=== PATIENT | female | born 1980 | race African-American/Black ===

== ENCOUNTER 2025-03-23 12:19 | Outpatient (CLI) | payer OTHER, SELFPAY ==
--- NOTE | ~2025-03-23 | MMUS_ITS ---
EXAMINATION: MM diagnostic tarik BI w staci, US breast BI complete HISTORY: Abnormal mammogram. TECHNIQUE: Additional 3-D tomosynthesis images of the breasts were performed and synthetic 2-D images were generated. CAD analysis was submitted and interpreted. High resolution bilateral complete breas t ultrasound was performed. COMPARISON: Comparison to multiple prior studies sequentially, with oldest reviewed study dated 03/27. BREAST PARENCHYMAL COMPOSITION: Dense: The breasts are heterogeneously dense, which may obscure small masses FINDINGS: MAMMOGRAPHIC FINDINGS: There are no suspicious masses, calcifications or architectural distortion in either breast to sugges t malignancy. ULTRASOUND: Complete US of all 4 quadrants of the breast/s and retroareolar region was reviewed. There are multip le bilateral cysts in both breasts. No suspicious masses are identified in either breast to suggest m alignancy. IMPRESSION: 1. No evidence for malignancy in either breast. 2. Routine yearly screening mammogram and regular clinical breast examination are recommended. BI-RADS Category 2: Benign finding(s). Reviewed, dictated and finalized at location A. IMPRESSION: 1. No evidence for malignancy in either breast. 2. Routine yearly screening mammogram and regular clinical breast examination a re recommended. BI-RADS Category 2: Benign finding(s).
--- OUTSIDE RECORDS SUMMARY | 2025-03-23 14:00 | XMS_ITS | Data Portability ---
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 N Hospitalizations N Hyperparathyroidism N Migraines N Artificial Joints N Brain Tumors N NSAID Use N Acne N Eating Disorder N Encephalitis N PTSD N Meningitis N Constipation N Ulcers N Prostate Hypertrophy N Bleeding Disorder N Tuberculosis N Cerebral Palsy N AIDS/HIV N Myocardial Infarction N Urinary Tract Infection N Back Problems N Atrial Flutter N Substance Abuse N Peripheral Vascular Disease N Vertigo N Sleep Disorder N GERD/Reflux N Cirrhosis N Pulmonary Embolism N Chicken Pox N Autism Spectrum Disorder (ASD) N Hematologic Disease N Flomax Use Past or Present N Anxiety/Depression N Thyroid Disease N Colon Cancer N Breast Cancer N Hernia N Glaucoma N Lung Disease N Hypothyroidism N Developmental or Behavioral Disorders N Bipolar N Breast Problem N Pacemaker N Diverticulitis/Diverticulosis N Anesthesia Complications N Orthopedic Problems N Genitourinary Disease N Deep Vein Thrombosis N Varicose Veins N Cystic Fibrosis N Orthotics N Hearing Loss N Head Injury/Concussion N Developmental Problems N Congenital Anomalies N Wheeler Bite N Carotid Disease N Chronic Kidney Disease N Vitamin D Deficiency N ADHD N Endometriosis N Bladder or Kidney Problems N Meniers N Valvular Abnormalities N Psychiatric/Mental Health Condition N Organ Transplant N Dialysis N Schizophrenia N Foot Deformity N Speech Delay N Allergies/Hayfever N Dyslipidemia N Hyponatremia N Chronic Obstructive Pulmonary Disease N Parkinson's Disease N Developmental Delay N Diabetic Eye Disease N Osteoporosis/Osteopenia N Immune System Disorder N Multiple Sclerosis N Back Pain N Proteinuria N Colon Polyps N Mental Illness N Neurological Problems N Ovarian Cancer N Cardiomyopathy N Bedwetting N Blood Transfusions N Heart Problems/Murmur N Eye Trauma N Congestive Heart Failure (CHF) N Hyperlipidemia N Valvular Heart Disease N Kidney Failure N Double Vision N Ocular trauma N Abuse/Domestic Violence N Diverticulitis N Dementia N Hepatitis B N Lupus N Epilepsy/Seizures N Reflux/GERD N Sleep Apnea N Mental Problems N Warfarin Management N Aneurysm N Bronchitis N Heart Disease N Pre-Eclampsia N Hypertension N Gynecological History Statement/Question Response Abnormal Pap N Date of Last Mammogram 03/05/2021 Flow Heavy Date of LMP 02/18/2025 STIs/STDs N HPV Vaccine N Duration of Flow (days) 12 Age at Menarche 7 Current Control Method Tubal Ligat ion Age at First Child 16 Frequency of Cycle (Q days) 14 Sexually Active? N Menses Monthly N Date of Last Pap Smear 02/11/2022 Sexual Problems? N LMP Definite Desired Control Method None Obstetrics History GPAL:G 4 P 3 0 1 3 Type Value Multiple Births 0 Full Term 3 Induced 1 Spontaneous 0 Premature 0 Living 3 Ectopics 0 Total 4 Immunizations Vaccine Type Date Status Note Provider Nam e and Address Organization Details Recorded Time Hep A, adult 10/04/2020 completed Aissatou Scott MA [place], [place] - [facility] 10/04/2020 14:52:55 Past Encounters Encounter ID Performer Location Encounter Start Date Encounter Closed Date Diagnosis/Indication Diagnosis SNOMED-CT Code Diagnosis ICD10 Code Diagnosis Note [id number] MD Ann Pruitt (Adult Med) [address] [place] [address] 42528-139 0 01/03/2015 10:39:13 01/03/2015 18:16:25 [id number] Deepthi Juarez (Adult Med) [address] [place] [address] 15208-699 0 01/25/2015 14:04:01/26/2015 10:40:27 Adult health examination [id number] Body mass index 30+ - obesity 650135654 [id number] Deepthi Diaz Ann (Adult Med) [address] [place] [address] 79746-956 0 03/22/2015 10:17:32 03/23/2015 13:28:39 Body mass index 30+ - obesity 297771750 Adult [facility] th examination [id number] Janet Tello Ann (BACKSHOE PERSON) [address] [place] [address] 79048-930 0 03/29/2015 13:48:20 03/29/2015 16:45:38 Gynecologic examination 08166821 [id number] Ann (Adult Med) [address] [place] [address] 92386-469 0 05/23/2015 16:19:45 05/23/2015 17:02:55 Ulnar neuritis [id number] Merari Claudine Juarez (Adult Med) [address] [place] [address] 88621-477 0 12/08/2015 10:05:49 12/08/2015 17:18:14 Tuberculosis screening 383123720 Z11.1 [id number] NEAL Roblero (Adult Med) [address] [place] [address] 66024-863 0 12/19/2015 10:34:52 12/20/2015 15:58:58 Tuberculosis screening 938607897 Z11.1 [id number] MD Ann Priutt (Adult Med) [address] [place] [address] 38023-354 0 12/27/2015 12:10:47 12/29/2015 09:33:56 Constipation 95336153 K59.00 Increase fluid intake Tuberculos is screening 232474547 Z11.1 [id number] Greg Juarez (Adult Med) [address] [place] [address] 35011-788 0 02/14/2016 14:40:37 02/14/2016 15:50:42 Edema of lower extremity 818091260 R60.0 Backache 128501405 M54.9 Numbness of face 5830898 09 R20.0 On right [id number] MD Ann Pruitt (Adult Med) [address] [place] [address] 52159-787 0 05/27/2017 16:49:32 05/27/2017 17:31:06 Abnormal sensation 599386026 R20.9 Right leg. observe for change Edema of l ower extremity 247701020 R60.0 [id number] MD Ann Pruitt (Adult Med) [address] [place] [address] 52815-594 0 09/09/2017 10:37:16 09/09/2017 13:19:38 History and physical examination, pre-employment 278241743 Z02.1 Pain in right foot 55312 57243 53660 M79.671 discussed use of otc nsaid prn and /or menthol topical rub Tuberculos is screening 598821075 Z11.1 [id number] MD Ann Pruitt (Adult Med) [address] [place] [address] 75110-084 0 05/27/2018 12:45:53 05/28/2018 10:09:05 Body mass index 30+ - obesity 724907647 Z68.39 Encouraged Diet and activity [id number] MD Ann Horne (Adult Med) [address] [place] [address] 30469-643 0 03/19/2019 15:20:57 03/22/2019 10:30:28 Respiratory tract infection 326196349 J98.8 [id number] MD Ann Pruitt (Adult Med) [address] [place] [address] 01616-979 0 04/01/2019 12:39:34 04/02/2019 11:44:38 Unilateral leg edema 219153330 R60.0 Tenderness in limb 11972 1000 M79.197 [id number] Jose Juarez (BACKSHOE PERSON) [address] [place] [address] 49259-064 0 07/19/2019 11:01:55 07/20/2019 12:48:39 Gynecologic examination 16701771 Z01.419 Z11.51 Exposure t o sexually transmissible disorder 825992613 Z20.2 declined HIV Screening mammography 24 894095 Z12.31 Vulvitis 85614635 N76.2 iatrogenic - caused by excessive soaping- instructed on use of conditione r instead of soap in the pubic and axillary hair [id number] MD Ann Pruitt (Adult Med) [address] [place] [address] 24677-259 0 09/28/2019 09:50:04 09/29/2019 10:02:08 Pain in both feet 9151547850 7861051 M79.671 M79.672 Suggested daily aspirin use with meal due to associated knee pain and effusion Effusion o f joint of left knee 3985345796 26857 M25.462 Osteoarthr itis of knee 734629635 M17.9 [id number] MD Ann Pruitt (Adult Med) [address] [place] [address] 57809-697 0 12/06/2019 11:49:03 12/06/2019 13:12:34 Abnormal sensation 639824573 R20.9 Discussed addition of gabapentin [id number] MD Ann Pruitt (Adult Med) [address] [place] [address] 33524-734 0 06/05/2020 09:04:29 06/06/2020 08:55:35 Pain in elbow 54250723 M25.769 [id number] NEAL Cisneros (Adult Med) [address] [place] [address] 70344-765 0 09/28/2020 10:11:06 09/28/2020 10:55:38 [id number] NEAL Cisneros (Adult Med) [address] [place] [address] 92496-747 0 10/04/2020 14:22:20 10/05/2020 10:26:04 Requires a hepatitis A vaccination 726595485 Z28.3 [id number] Jose Juarez (BACKSHOE PERSON) [address] [place] [address] 87500-489 0 11/09/2020 12:02:30 11/15/2020 08:39:00 Family planning surveillance 887613405 Z30.09 Female sterilization 608 05742 Z30.2 Abnormal u terine bleeding 5047797331 9100 N93.9 Dysmenorrhea 685642004 N 94.6 [id number] Jose Juarez (BACKSHOE PERSON) [address] [place] [address] 08270-360 0 01/31/2021 08:18:04 01/31/2021 17:35:03 Screening for malignant neoplasm of breast 541866402 Z12.39 [facility] nning surveillance 127877511 Z30.09 [id number] Jose Lindsey Juarez (BACKSHOE PERSON) [address] [place] [address] 32328-918 0 01/31/2021 17:38:09 02/21/2021 09:59:03 Atrophic vaginitis 18565103 N95.2 Perimenopa usal disorder 437674999 N95.9 Screening for malignant neoplasm of breast 727331840 Z12.39 Hyperhidrosis 583261929 R61 [facility] nning surveillance 458939402 Z30.09 [id number] Jose Lindsey Juarez (BACKSHOE PERSON) [address] [place] [address] 75671-872 0 02/20/2021 15:54:21 02/21/2021 08:45:20 Family planning surveillance 554147888 Z30.09 Atrophic vaginitis 49884 000 N95.2 Perimenopa usal disorder 187124805 N95.9 Hyperhidrosis 272047874 R61 -d/c drysol [id number] MD Ann Pruitt (Adult Med) [address] [place] [address] 44604-356 0 01/17/2022 09:54:21 01/18/2022 09:13:32 Cough 69169234 R05.9 Eruption 562619355 R21 [id number] AMBER WARREN (Adult Med) [address] [place] [address] 97574-326 0 02/11/2022 08:26:05 02/12/2022 08:58:32 Urinary incontinence 739128516 R32 Pt admits to episodes of incontinen ce mostly with coughing and sneezing. She has an increased urgency to go to the bathroom and will dribble even after recently urinating. Between the bleeding and incontinen ce she goes through 3-4 depends a day.- provided informatio n about kegel exercises to help strengthen the pelvic muscles- sent depends to pharmacy to help pt save money Gynecologi c examination 76752828 Z01.419 Here today for WWEHx of tubal ligationLa st pap 2019, normal- pap performed today- UA to r/o infection which was normal Venereal d isease screening 647790034 Z11.3 Pt having vaginal pruritis and increased urgency to urinate.No t currently sexually active- nuswab to r/o infection Perimenopausal state 063 7416328 16316 Z78.0 She also admits to frequent night sweats, intermitte nt vaginal pruritis, and stress incontinen ce mostly with coughing and sneezing. She has increased urge to urinate but denies dysuria, increased frequency, or hematuria. Currently using premarin cream but was complainin g of it falling out - recommende d using before bed to prevent it from falling out- recommende d using it up to 3x/week (currently using it once weekly) Screening mammography 24 129904 Z12.31 Last mammogram 2020- new mammogram referral placed Abnormal u terine bleeding 6810996702 9100 N93.9 Pt states she was diagnosed with perimenopa usal state in Oct 2020 after having an episode of severe pelvic cramping and heavy bleeding with blood clots. She was started on Slynd at that time which has somewhat helped with her periods, but they are still very irregular. She states she did not have a pelvic US or any further workup at that time. Pt states she ran out of Slynd at the end of Jan and has been feeling more fatigued since then.PE: abd distended and suprapubic tenderness - refilled Slynd for now- pelvic US to r/o structural causes of pelvic cramping and irregular bleeding Morbid obesity 171821338 E66.01 BMI 38.7- Advised decreased portion sizes, good food choices, limited eating out or fast food and eliminate soda and juice from diet. Advised physical activity daily and offered encouragem ent to continue with positive changes made so far. Constipation 43049172 K5 9.00 Pt admits to chronic constipati on- increased fiber and fluid intake- start fiber supplement to regulate bowel movements- can take OTC miralax if no BMs for 4-5 days [id number] Zac Barriga MD [facility] (Adult Med) [address] [place] [address] 90036-802 0 02/20/2022 09:51:43 02/21/2022 11:11:25 Gastroenteritis 90465005 K52.9 Observe for recurrence associated with fe supplement Tuberculos is screening 147182666 Z11.1 [id number] AMBER WARREN [facility] (Adult Med) [address] [place] [address] 02/06/2023 08:57:41 02/11/2023 16:53:25 Obesity 053342255 E66.9 BMI: 38.7Advise d decreased portion sizes, good food choices, limited eating out or fast food and eliminate soda and juice from diet. Advised physical activity daily and offered encouragem ent to continue with positive changes made so far. Constipation 42674798 K5 9.00 Pt admits to chronic constipati onWorse with iron tablets due to SHAYE- increased fiber and fluid intake- start fiber supplement to regulate bowel movements- pt takes Equate to control constipati on- consider changing BC to control bleeding better which would fix SHAYE and then could stop iron Pruritus of vagina 43535 003 L29.3 Vaginal pruritus for the past 5 years, denies discharge, abd. pain, flank pain. Patient has history of vaginal itching- nuswab vg pos for gerard glabrata and trich. took medication as prescribed but did not help.-chec k swab again today to see if CG is still present, has resistant to diflucan- asked if she wanted ISH for trich but patient decliend today Screening mammography 24 654021 Z12.31 Last mammogram 2020- new mammogram referral placed Urinary incontinence 165 346949 R32 Pt admits to episodes of incontinen ce mostly with coughing and sneezing. She has an increased urgency to go to the bathroom and will dribble even after recently urinating. Between the bleeding and incontinen ce she goes through 3-4 depends a day.- provided informatio n about kegel exercises to help strengthen the pelvic muscles- sent depends to pharmacy to help pt save money-pelv ic floor therapy referral Atrophic vaginitis 97874 000 N95.2 Use of topical cream does help the pruritis temporaril y, using it 3x/week as directed-a pply Premarin 0.625 mg/gram vaginal gream Abnormal u terine bleeding 3612394489 9100 N93.9 Pt states she was diagnosed with perimenopa usal state in Oct 2020 after having an episode of severe pelvic cramping and heavy bleeding with blood clots. She was started on Slynd at that time which has somewhat helped with her periods, but they are still very irregular. She states she did not have a pelvic US or any further workup at that time. Pt states she ran out of Slynd at the end of Jan and has been feeling more fatigued since then.PE: abd distended and suprapubic tenderness - refilled Slynd for now- pelvic US to r/o structural causes of pelvic cramping and irregular bleeding Depression screening 171 818919 Z13.31 PHQ 01/09 was negative in office today (0 out of 27) [id number] AMBRE WARREN (Adult Med) [facility] [place] [address] 03/11/2023 14:58:20 03/12/2023 09:14:43 Pruritus of vagina 68539189 L29.3 Vaginal pruritus for the past 5 years, denies discharge, abd. pain, flank pain. Patient has history of vaginal itching- nuswab vg pos for gerard glabrata and trich. took medication as prescribed but did not help.- 02/11/22 nuswab vg pos for gerard glabrata and trich- 02/06/22 nuswab vg pos for gerard glabrata Patient started using the Boric acid as of 02/06/23. Using daily. Notes some improvemen t of the pruritus. Patient on her menstrual cycle today and declined swab today. Will come back to the office next week to repeat.- ordered repeat nuswab bv and gerard Urinary incontinence 165 881686 R32 Pt admits to episodes of incontinen ce mostly with coughing and sneezing. She has an increased urgency to go to the bathroom and will dribble even after recently urinating. Between the bleeding and incontinen ce she goes through 3-4 depends a day. Since last visit, patient is working with therapist for pelvic floor exercises and doing bladder training. Improvemen t of symptoms. Now she is using 0-2 Depends per day vs 3-4 at the last visit.- Continue pelvic floor exercises and bladder training Constipation 52125133 K5 9.00 Pt admits to chronic constipati onWorse with iron tablets due to SHAYE- increased fiber and fluid intake- start fiber supplement to regulate bowel movements- pt takes Equate to control constipati on- consider changing BC to control bleeding better which would fix SHAYE and then could stop iron Screening mammography 24 223374 Z12.31 Last mammogram 2020- Mammogram scheduled for next week Atrophic vaginitis 38594 000 N95.2 Use of topical cream does help the pruritis temporaril y, using it 3x/week as directed- c/w Premarin 0.625 mg/gram vaginal gram Obesity 513771145 E66.9 BMI: 38.7Advise d decreased portion sizes, good food choices, limited eating out or fast food and eliminate soda and juice from diet. Advised physical activity daily and offered encouragem ent to continue with positive changes made so far. Menorrhagia 799793094 N9 2.0 Pt states she was diagnosed with perimenopa usal state in Oct 2020 after having an episode of severe pelvic cramping and heavy bleeding with blood clots. At today visit, patient notes starting her menstrual cycle yesterday and notes heavy flow. Today she's changed Depends x3 times. Since starting perimenopa use, her menstrual cycles have been irregular. However, she's had a menstrual cycle every month this year for 5-7 days. Continues on norethindr one. She is having improved energy levels and would like to remain on the norethindr one instead of going back on the Slynd.- pelvic US to r/o structural causes of pelvic cramping and irregular bleeding- Start Ibuprofen 800 mg TID for 5 days Increased blood pressure 89635574 R03.0 Slightly elevated in the office today, was normal at her last visit with me.Follows with PCP regularlyK eep eye on blood pressure and f/u with PCP regarding elevated blood pressure [id number] MD Ann Pruitt (Adult Med) [address] [place] [address] 85353-574 0 10/04/2024 17:14:00 10/05/2024 16:03:12 Elevated blood-pressure reading without diagnosis of hypertension 286662097 R03.0 Reevaluate at next OV. Watch Na intake Allergic rhinitis 408536 04 J30.9 Cough 68991655 R05.9 [id number] MD Ann Pruitt (Adult Med) [address] [place] [address] 80322-775 0 01/05/2025 16:35:23 01/11/2025 16:10:34 Morbid obesity 230393573 E66.01 Allergic rhinitis 959481 04 J30.9 Restart cetirizine Essential hypertension 77163076 I10 Start antihypert ensive Microcytic hypochromic anemia 02285531 D50.9 Screening for malignant neoplasm of colon 389176651 Z12.11 [id number] MD Ann Dang (Adult Med) [address] [place] [address] 15263-048 0 03/01/2025 14:58:04 03/03/2025 14:04:26 Gynecologic examination 65904423 Z01.419 Normal PAP, Negative HPV 02/11/2022N uswab ordered [facility] screening 486598997 Z13.39 GAD7- {{Negative * Positive Mild Mode rate Sever e}} (0 out of 21) Depression screening 171 561943 Z13.31 PHQ9- {{Negative Positive Mild* Mode rate Sever e}} (9 out of 27) Morbid obesity 919865983 E66.01 BMI 40.3 Pain of left breast 1010 867041 N64.4 Mammogram and U/S orderedtwo small masses about 1cm each at lower inner quadrant [id number] NEAL Will (Adult Med) [address] [place] [address] 09149-477 0 01/31/2025 11:19:12 02/03/2025 12:52:06 Blood pressure taking 58162823 Z01.30 [id number] MD Ann Pruitt (Adult Med) [address] [place] [address] 35090-784 0 02/08/2025 11:55:13 02/09/2025 11:29:50 Type 2 diabetes mellitus 01003982 E11.9 Cough 72677526 R05.9 Essential hypertension 34516949 I10 Cont antihypert ensive Microcytic hypochromic anemia 21125787 D50.9 [id number] Aura HERMAN 14 IM [address] [facility] [place] [address] 03/07/2025 10:20:45 03/08/2025 03:47:30 Type 2 diabetes mellitus 23107664 E11.9 Patient has uncontroll ed DM2 as evidenced by an A1C of 10.2. Since the patient does not prefer injections and due to her increased BMI an oral agent such as, Rybelsus, would be recommende d. Rybelsus requires a PA per the patient's insurance, therefore glipizide can be started while that process is ongoing.Amber canchola also would not like to prick her finger to test BG, therefore she would be a good candidate for a CGM. Plan:Incre ase Jardiance form 10 mg to 25 mg PO QDStart PA for Rybelsus 3 mg PO QDStart Glipizide 5 mg PO BID unless if PA is approved for rybelsusIn itiate Freestyle John sample and educate on CGM at next visitEduca horace on ADRs of Jardiance due to her history with yeast infectionF ollow BG readings until controlled [id number] Aura HERMAN 14 IM [address] [facility] [place] [address] 03/08/2025 15:17:23 03/10/2025 03:47:17 Type 2 diabetes mellitus 71409377 E11.9 Patient has uncontroll ed DM2 as evidenced by an A1C of 10.2. Since the patient does not prefer injections and due to her increased BMI an oral agent such as, Rybelsus, would be recommende d. Rybelsus requires a PA per the patient's insurance, therefore glipizide can be started while that process is ongoing.Amber canchola also would not like to prick her finger to test BG, therefore she would be a good candidate for a CGM. Plan:Geovany nue JardianceS tart Rybelsus 3 mg PO QDStart Glipizide 5 mg PO BID in 1 monthIniti ate Freestyle John sample and educate on CGMFollow BG readings until controlled [id number] Aura HERMAN 14 IM [address] [facility] [place] [address] 03/15/2025 10:14:16 03/15/2025 11:05:57 Type 2 diabetes mellitus 61360484 E11.9 Type 2 diabetes, uncontroll ed, with fear of insulin injections .Initiatio n of Rybelsus has led to expected side effects, including gastrointe stinal upset.Yeas t infection is likely due to Jardiance and/or hyperglyce miaChallen ges with CGM adherence due to sensor detachment . Plan:Geovany keely Rybelsus 3mg QDSchedule follow up in 2 weeks to discuss blood sugar and dose increase on rybelsusIn itiate Fluconazol e 150mg tablet as one time dose Health Concerns Section Related Observation LastModified by Organization Detai ls LastModified Time None Recorded Concern Status LastModified by Organization Details LastModified Time None Recorded Advance Directives Directive N: Payers Encounter Date Sequence Insurance Name Policy Number Policy Ross Covered Member ID Ross Member ID Guarantor Name 03/01/2025 1 [facility] [id number] Maylynda J Williba [id number] [facility] 03/07/2025 1 [facility] [id number] Maylynda J Williba [id number] [facility] 03/08/2025 1 [facility] [id number] Maylynda J Williba [id number] [facility] 03/15/2025 1 [facility] [id number] Maylynda J Williba [id number] Malynda Williba Notes Date Note Type Note Provider Name and Address Organization Details Recorded Time 03/01/2025 text/html This is a 44 yo female here today for a gynecological exam check up.She has no complaints other than a lump under right breast. Pt states that it was there for 1 month but now it is gone. Pt is not sexually active.Denies fever, chills, nipple discharge, rash on breast, abnormal vaginal bleeding, pelvic pain. Glenn Linder MD Attn: Accounting,[address] [place], [address], [place] [facility] 03/01/2025 17:15:05 03/07/2025 text/html MW is a 44 year old female who was diagnosed last month with T2DM her A1C was 10.2. Last month() she started on Metformin. She contacted the doctor due to Metformin contributing to her mother s End stage renal disease and wanting to start something else. At her follow up on 02/08 patient was started on jardiance 10mg QDDuring the visit the patient was educated on diagnosis of T2DM, medication, and goals. Patient spoke on social life about her father recently passing from stage 4 cancer. When asked about Jardiance and diagnosis SLY explained how she preferred not to do finger pricks or injectables and that she is having frequent urination since she has started jardiance. AVTAR GOODEN PharmD Attn: Accounting, [place], [address], [facility] 03/08/2025 15:08:21 03/08/2025 text/html SLY is a 44 year old last year female who was diagnosed with T2DM about a month ago. Patient s A1c was 10.2 and it is recommended to start insulin or GLP-1. Patient is currently unwilling to start injectable. Patient is a good candidate for CGM due to currently be uncontrolled and unwilling to finger prick. We applied patient s freestyle john sensor for 15 days. Educated the benefits of CGM, signs of hyperglycemia, and diet AVTAR GOODEN PharmD Attn: Accounting, [facility], [place], [address], [facility] 03/15/2025 10:50:18 03/15/2025 text/html SLY is a 44-year- old female who presented to the clinical pharmacy for management of her recently diagnosed type 2 diabetes, which remains uncontrolled. Diagnosed one month ago with an HbA1c of 10.2%, insulin therapy was initially recommended; however, SLY has expressed a strong fear of needles. As an alternative, she was prescribed Rybelsus 3mg last week. Additionally, she received a FreeStyle John 3 sensor sample for continuous glucose monitoring but reports that the sensor fell off, resulting in a bruise. Despite this, her sister is encouraging her to continue using the CGM, and the [employer] malena was recommended to enhance her monitoring experience. The patient was reassured that her insurance covers the sensors. SLY reports her blood glucose levels have been in the 250s throughout the day and 130s in the morning. She is also experiencing signs of a yeast infection and gastrointestinal upset. AVTAR GOODEN PharmD Attn: Accounting, [place], [address], [facility] 03/22/2025 12:32:56 OBGyn Episode Ob Episode Information Episode Created Date Number of Fetuses Patient Bloodtype Patient rh Status Prepregnancy Weight lbs Domestic Partner Domestic Partner Phone Father Name Rag Grader Status 07/19/20 1 CLOSED Fetus Data First Name Last Name Admitted to NICU Weight (g) Sex Living Outcome Pediatric Complications Fetus ID Race Codes Race Delivery Type 2948.34 8 F Full Term [id number] Vaginal Only Phani Calculation Initial Phani Date Initial Exam Date Initial Exam Provider Initial Ultrasound Date Last Menstrual Period Date Ultra Sound Weeks Gestation 0 Eighteen To Twenty Week Phani Update Ultra Sound Date Fundal Height At Umbil Quickening Date Ultra Sound Latest Weeks Gestation Final Phani Confirmed By Final Phani Confirmed Date Final Phani Date Ultra Sound Latest Days Gestation 0 0 Menstrual History Last Menstrual Date Menses Monthly On Bcp Conception Prior Menses Frequency Hcg Plus Date Menarche Onset Age Delivery Information Delivery Date Delivery Type Labor Anesthesia Weeks Gestation Incision Type Labor Labor Length Hrs Delivered By Post Complications Tubal Sterilization Discharge Date Comments 7 Discharge Information Feeding Method Contraceptive Method Maternal HG B and HCT Levels Ob Episode Information Episode Created Date Number of Fetuses Patient Bloodtype Patient rh Status Prepregnancy Weight lbs Domestic Partner Domestic Partner Phone Father Name Rag Grader Status 07/19/20 1 CLOSED Fetus Data First Name Last Name Admitted to NICU Weight (g) Sex Living Outcome Pediatric Complications Fetus ID Race Codes Race Delivery Type 3259.96 5704 M Full Term [id number] Vaginal Only Phani Calculation Initial Phani Date Initial Exam Date Initial Exam Provider Initial Ultrasound Date Last Menstrual Period Date Ultra Sound Weeks Gestation 0 Eighteen To Twenty Week Phnai Update Ultra Sound Date Fundal Height At Umbil Quickening Date Ultra Sound Latest Weeks Gestation Final Phani Confirmed By Final Phani Confirmed Date Final Phani Date Ultra Sound Latest Days Gestation 0 0 Menstrual History Last Menstrual Date Menses Monthly On Bcp Conception Prior Menses Frequency Hcg Plus Date Menarche Onset Age Delivery Information Delivery Date Delivery Type Labor Anesthesia Weeks Gestation Incision Type Labor Labor Length Hrs Delivered By Post Complications Tubal Sterilization Discharge Date Comments 0 Discharge Information Feeding Method Contraceptive Method Maternal HG B and HCT Levels Ob Episode Information Episode Created Date Number of Fetuses Patient Bloodtype Patient rh Status Prepregnancy Weight lbs Domestic Partner Domestic Partner Phone Father Name Rag Grader Status 07/19/20 19 1 CLOSED Fetus Data First Name Last Name Admitted to NICU Weight (g) Sex Living Outcome Pediatric Complications Fetus ID Race Codes Race Delivery Type 3968.93 M Full Term [id number] Vaginal Only Phani Calculation Initial Phani Date Initial Exam Date Initial Exam Provider Initial Ultrasound Date Last Menstrual Period Date Ultra Sound Weeks Gestation 0 Eighteen To Twenty Week Phani Update Ultra Sound Date Fundal Height At Umbil Quickening Date Ultra Sound Latest Weeks Gestation Final Phani Confirmed By Final Phani Confirmed Date Final Phani Date Ultra Sound Latest Days Gestation 0 0 Menstrual History Last Menstrual Date Menses Monthly On Bcp Conception Prior Menses Frequency Hcg Plus Date Menarche Onset Age Delivery Information Delivery Date Delivery Type Labor Anesthesia Weeks Gestation Incision Type Labor Labor Length Hrs Delivered By Post Complications Tubal Sterilization Discharge Date Comments 8 Discharge Information Feeding Method Contraceptive Method Maternal HG B and HCT Levels
== END 2025-03-23 12:20 | disposition home or self-care (01) ==
LOC: ANHIMG 12:22
PROVIDERS: PCP Internal Medicine Gastroenterology; Visit Provider Physician Assistant Medical
DX: N64.4 Mastodynia (principal)
CPT/HCPCS: 76641; 77062; 77066; G0279